=== PATIENT | male | born 2000 | race Hispanic/Latino ===

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

== ENCOUNTER 2021-11-28 13:36 | Emergency (ER) | payer MEDICAID ==
[2021-11-29 13:28] LABS: SARS-CoV-2 PCR by NAA DETECTED (NotDetected)
== END 2021-11-28 15:21 | disposition home or self-care (01) ==
LOC: ERS 13:36
DX: U07.1 COVID-19 (principal); F17.210 Nicotine dependence, cigarettes, uncomplicated
CPT/HCPCS: 87804; 99283; U0003; U0005